=== PATIENT | male | born 2005 | race African-American/Black ===

== ENCOUNTER 2024-01-18 17:01 | Emergency (ER) | payer MEDICAID, SELFPAY ==
[2024-01-18 17:02] VITALS: BP 129/88; BP 151/76; PULSE 116; PULSE 91; RESP 16; RESP 20; TEMP 36.4; TEMP 36.5; O2SAT 100; O2SAT 98; BMI 42.0
--- NOTE | 2024-01-18 17:41 | EDS_ITS ---
HPI HPI - Fall History of Present Illness Chief Complaint: Trauma Informant: patient Occured/Mechanism Occurred: Today Mechanism/Context: Yes same level fall Usually ambulates: Without assistance Pain/Injury Pain Location: face and lower extremity Quality of Pain: Sharp Current Severity: Mild Maximum Severity: Mild Associated Symptoms Associated Symptoms: Negative for Parasthesias, Weakness, Loss of function, Inability to ambulate, Loss of consciousness or Amnesia Narrative Narrative: 18-year-old male history of asthma. [employer] student. Madi is skateboard. Fell forward striking both knees on the ground causing abrasions and chipped his left front incisor and fractured his left front upper tooth. No LOC. No neck pain. No other injuries. Prior similar symptoms: No Recent Illness/Hospitalization: No PFSH PFSH Home Medications NK 01/18/24 [History Last Taken Unknown] Allergy/AdvReac Type Severity Reaction Status Date / Time No Known Allergies Allergy Verified 01/18/24 17:03 ROS ROS ED ROS Narrative Denies recent illness. Review of Systems ROS Unobtainable: Denies due to encephalopathy Constitutional Constitutional ED: Denies chills or fever(s) Eyes Eyes: Denies blurry vision ENT ENT ED: Denies ear pain Cardiovascular Cardiovascular: Denies chest pain or palpitations Respiratory/Chest Respiratory/Chest: Denies cough or dyspnea Gastrointestinal Gastrointestinal: Denies abdominal pain Genitourinary Genitourinary ED: Denies dysuria or hematuria Musculoskeletal Musculoskeletal: Denies arthralgias or back pain Integumentary Denies abscess or Abrasions Neurologic Neurologic: Denies headache(s) Psychiatric Psychiatric: Denies anxiety or depression Endocrine Endocrinology: Denies polydipsia or polyphagia Hematologic/Lymphatic Hematologic/Lymphatic: Denies easy bleeding, easy bruising or lymphadenopathy Allergic/Immunologic Allergic/Immunologic ED: Denies mouth swelling, tongue swelling or urticaria EXAM Physical Exam Narrative Exam Narrative: 89-year-old male no acute distress vital signs stable afebrile. HEENT exam dry reactive to light. Extra motions are intact. His left upper front tooth has a diagonal crack through it. This will need dental repair by a dentist or injection molding supervisor. He also has a chipped left upper front incisor. Gums unremarkable jaw nontender he can open and close his mouth on any difficulty. Scalp nontender. Neck nontender. Back nontender. Lungs clear. Heart regular rhythm rate about 100 no murmur. Chest wall and ribs nontender. Abdomen soft nontender. Pelvic girdle intact. Moving all 4 extremities. Full range of motion. Minor abrasions both knees. Full flexion extension. No effusions. ACL and PCL intact. MCL and LCL intact. Full flexion extension of both hips, knees and ankles and feet. Normal strength and sensation. Upper extremities are nontender with 5 out of 5 family literacy coordinator strength. Normal range of motion. Neurologically is awake and alert with no focal motor deficits. Const Vital Signs: 01/18/24 17:02 Temperature 97.7 F L Temperature Source Temporal Pulse Rate 116 H Respiratory Rate 20 H Blood Pressure 129/88 H Blood Pressure Mean 101 Pulse Ox 100 Oxygen Delivery Method Room Air Positive well nourished and well developed; Negative for cachectic, contractures or unkempt General Appearance ED: well developed and NAD; Negative for unkempt, cachectic or contractures Nutritional Appearance: Negative for cachectic HEENT Reports normocephalic HEENT Narrative: Left upper front tooth fracture. Left upper incisor chipped. No malocclusion. Able to open close his jaw. No facial swelling. Neck nontender. Scalp nontender. trauma; Negative for atraumatic, contusion or hematoma Eyes PERRL and EOMs intact bilaterally General Eye ED: Negative for pale conjunctiva or scleral icterus Neck full ROM, no lymphadenopathy and supple Chest Wall inspection of chest normal and palpation of chest normal Chest: Negative for other Resp normal respiratory effort, no retractions and clear to auscultation bilaterally Effort and Inspection: Negative for pain with movement Auscultation: Negative for rales, rhonchi, wheezes or diminished lung sounds Cardio regular rate, regular rhythm, S1 normal heart sound, S2 normal heart sound and no murmurs Rate: Negative for bradycardia or tachycardic Rhythm: Negative for abnormal rhythm Bruits: Negative for other GI non-tender, non-distended and no masses Inspection: Negative for abdominal distention Auscultation: normoactive bowel sounds Palpation: soft; Negative for guarding or rebound tenderness present Back/Spine no CVA tenderness General Back: Negative for CVA tenderness Cervical Spine: Negative for cervical spine tenderness Thoracic Spine / Upper Back: Negative for ROM limited or pain with ROM Lumbar Spine / Lower Back: Negative for lumbar spinal tenderness Extremity Extremity Narrative: Bilateral knee abrasions. No effusions. Full range of motion. No bony deformity. Ligaments intact. Neuro oriented x3, CN's II-XII intact bilaterally, moves all extremities, no focal motor deficits and no sensory deficits noted [place] Coma Scale: document GCS findings Spontaneous Obeys Commands Oriented 15 Sensorium / Orientation: alert, oriented to person, oriented to place and oriented to time; Negative for orientation impaired, confused, lethargic or stuporous Motor Exam: strength 5/5 throughout Psych mental status grossly normal and thought process normal Appearance: Negative for unkempt Attitude: No agitated Mood & Affect: Negative for depressed, anxious or tearful Skin General Skin Exam: Negative for other Lesions: no lesions Rashes: no rashes Trauma: abrasion MDM MDM MDM Narrative Medical decision making narrative: 18-year-old [employer] student fell from his skateboard. Has bilateral knee abrasions. Is a fracture left upper front tooth. Chipped left upper incisor. Follow-up with a dentist. Tylenol Motrin for pain. Ice to his knees. History & Record Review Discussion w/independent historian: Patient Discharge Plan Triage Chief Complaint: Trauma ED Provider: Jason Cox Dx/Rx/DC Orders Clinical Impression: Accidental fall from skateboard, Fracture of tooth, Abrasion of knee Instructions: Dental Trauma, ED Abrasion Prescriptions: No Action NK Primary Care Provider: NOT,DEFINED Referrals: NOT,DEFINED [Primary Care Provider] - Activity Restrictions/Additional Instructions: Keep urine knees clean. Apply antibiotic ointment. Ice. Motrin for pain and swelling of the knees and teeth. Tylenol for pain. Call your insurance company [employer] see if they have local dentist you can follow-up. You can try Dr. Ghassan Zacarias or Dr. Barron Wade their office is [place]. You can try [facility]. Or just look in the phone book for any dentist office locally. You will need that left upper front tooth repaired. Disposition Disposition: Home, Self Care
[2024-01-18 17:50] VITALS: BP 148/67; PULSE 84; RESP 16; TEMP 36.4; O2SAT 99
== END 2024-01-18 17:52 | disposition home or self-care (01) ==
LOC: ED 17:47
PROVIDERS: Emergency Provider Emergency Medicine; Visit Provider Emergency Medicine
DX: S02.5XXA Fracture of tooth (traumatic), initial encounter for closed fracture (principal); V00.131A Fall from skateboard, initial encounter; Y93.51 Activity, roller skating (inline) and skateboarding; S80.211A Abrasion, right knee, initial encounter; S80.212A Abrasion, left knee, initial encounter
CPT/HCPCS: 99282

== ENCOUNTER 2025-01-23 18:02 | Emergency (ER) | payer MEDICAID, SELFPAY ==
[2025-01-23 18:03] VITALS: BP 140/102; PULSE 83; RESP 15; TEMP 36.6; O2SAT 99; BMI 45.0
--- NOTE | 2025-01-23 20:40 | RAD_ITS ---
PROCEDURE: ABDOMEN SINGLE VIEW 01/23/2025 REASON FOR EXAM: CONSTIPATION TECHNIQUE: Single view abdomen. COMPARISON: None FINDINGS: Bowel gas: Bowel gas pattern is remarkable for mild constipation. No evidence of bowel obstruction. Calcifications: No suspicious calcifications. Bones: The bones are unremarkable. Other: RAD/Abdomen Single View IMPRESSION: Mild constipation within the left colon. Reading Location: [facility]
[2025-01-23 22:54] VITALS: BP 119/73; PULSE 89; RESP 19; O2SAT 100
--- NOTE | 2025-01-23 23:51 | ED.VIS.GI ---
HPI HPI - GI History of Present Illness Chief Complaint: Constipation Informant: patient Abdominal Pain/Flank Pain Onset: Days Context: Gradual Onset Timing: Continuous Current Severity: Mild Maximum Severity: Mild Nausea/Vomiting/Emesis GI Symptom: Negative for Nausea or Vomiting Diarrhea/Melena/Hematochezia GI Symptom: Negative for Diarrhea, Melena or Hematochezia Associated Symptoms Associated Symptoms: Negative for Dysuria, Frequency or Hematuria Narrative Narrative: 19-year-old male no seen past medical history. No prior abdominal surgeries. Says last bowel movement was last Thursday. Spent about 5 days. Denies vomiting, diarrhea or fever. No dysuria. No significant abdominal pain. Denies any recent change in his diet. He is on no pain medication. Prior similar symptoms: No Recent Illness/Hospitalization: No PFSH PFSH Medical History Asthma Anxiety Home Medications ?Medication ?Instructions ?Recorded ?Last Taken ?Type hydroxyzine HCl 25 mg tablet 25 mg PO DAILY PRN anxiety 01/23/25 Unknown History sennosides 8.6 mg-docusate sodium 2 tab PO BID 01/23/25 Unknown History 50 mg tablet (Stimulant Laxative Plus) Allergy/AdvReac Type Severity Reaction Status Date / Time No Known Allergies Allergy Verified 01/23/25 18:06 Social History Smoking Status: Never smoker ROS ROS ED ROS Narrative Constipation otherwise negative. Constitutional Constitutional ED: Denies chills or fever(s) ENT ENT ED: Denies ear pain Cardiovascular Cardiovascular: Denies chest pain Respiratory/Chest Respiratory/Chest: Denies cough or dyspnea Gastrointestinal Gastrointestinal: Reports constipation; Denies abdominal pain, diarrhea, melena, nausea or vomiting Genitourinary Genitourinary ED: Denies dysuria or hematuria Musculoskeletal Musculoskeletal: Denies arthralgias, back pain or myalgias Integumentary Denies abscess or Abrasions Neurologic Neurologic: Denies headache(s) Psychiatric Psychiatric: Denies anxiety or depression Endocrine Endocrinology: Denies polydipsia or polyphagia Hematologic/Lymphatic Hematologic/Lymphatic: Denies easy bleeding or easy bruising Allergic/Immunologic Allergic/Immunologic ED: Denies mouth swelling, tongue swelling or urticaria EXAM Physical Exam Narrative Exam Narrative: 19-year-old male sitting upright in bed. Vital signs are stable afebrile. No acute distress. H EENT exam pupils round react to light. Mytrex membranes. Neck nontender. Lungs clear to auscultation. Heart regular rhythm no murmur. Abdomen soft, nontender, nondistended normal bowel sounds without peritoneal signs. No tenderness. No hernia or mass. No obstruction. Moving all 4 extremities. Nontender no edema. He is awake and alert. No focal motor deficits. Very benign exam. Back nontender. Const Vital Signs: 01/23/25 18:03 01/23/25 22:54 Temperature 97.8 F Temperature Source Temporal Pulse Rate 83 89 Respiratory Rate 15 19 H Blood Pressure 140/102 H 119/73 Blood Pressure Mean 114 88 Pulse Ox 99 100 Oxygen Delivery Method Room Air Positive well nourished and well developed; Negative for cachectic, contractures or unkempt General Appearance ED: well developed and NAD; Negative for unkempt, cachectic, contractures or pallor Nutritional Appearance: Negative for cachectic HEENT Reports moist mucous membranes normocephalic and atraumatic Eyes PERRL and EOMs intact bilaterally General Eye ED: Negative for pale conjunctiva or scleral icterus Neck no lymphadenopathy, supple and no JVD Resp normal respiratory effort and clear to auscultation bilaterally Effort and Inspection: Negative for respiratory distress Auscultation: Negative for rales, rhonchi or wheezes Cardio regular rate, regular rhythm, S1 normal heart sound, S2 normal heart sound and no murmurs GI non-tender, non-distended and no masses Inspection: Negative for abdominal distention Auscultation: normoactive bowel sounds Palpation: soft; Negative for tender, guarding, hernia, mass, pulsatile mass or rebound tenderness present Back/Spine no CVA tenderness Extremity full ROM General Extremety ED: Negative for edema or tenderness General Extremity: Negative for edema Neuro CN's II-XII intact bilaterally and moves all extremities Sensorium / Orientation: alert, oriented to person, oriented to place and oriented to time; Negative for orientation impaired or confused Psych mental status grossly normal Appearance: Negative for unkempt Attitude: No agitated Mood & Affect: Negative for depressed, anxious or tearful Skin no wounds General Skin Exam: Negative for pallor Lesions: no lesions Rashes: no rashes MDM MDM MDM Narrative Medical decision making narrative: 19-year-old male with constipation for 5 days. Abdominal exam benign exam otherwise benign. X-ray consistent with left colon constipation. No obstruction. Treated with GoLytely discharged to home. Outpatient follow-up as needed. Radiography Diagnostic Testing: Clinical Impression(s) from Imaging Studies KUB X-Ray 01/23/25 20:40 IMPRESSION: Mild constipation within the left colon. [facility], 2 films. 1 view. Interpreted by myself and radiologist shows mild constipation left colon. No bowel obstruction. No other acute abnormalities. Discussed the x-ray results with patient. Discharge Plan Triage Chief Complaint: Constipation ED Provider: Jason Cox Dx/Rx/DC Orders Clinical Impression: Acute constipation Instructions: ED Constipation (Adult) Prescriptions: No Action sennosides-docusate sodium [Stimulant Laxative Plus] 8.6-50 mg tablet 2 tab PO BID hydroxyzine HCl 25 mg tablet 25 mg PO DAILY PRN (Reason: anxiety) Primary Care Provider: Care Physician,No Primary Referrals: Parker Corral MD [Med Staff - Math Instructor] - 1 Week if not improving Care Physician,No Primary [Primary Care Provider] - Activity Restrictions/Additional Instructions: Drink the entire bottle of GoLytely tomorrow morning. Usually kicks in in 1 to 4 hours. You should have multiple large bowel movements. Plenty of fluids, fruits, vegetables fiber and beets to help keep you regular. Follow-up if not improving. Return if worse. Print Language: Ivorian Disposition Disposition: Home, Self Care
[2025-01-23 23:53] VITALS: BP 118/74; PULSE 65; RESP 16; TEMP 36.6; O2SAT 100
[2025-01-24] MEDS: Electrolyte Solution/Peg's 4000 ML 2000 ML PO (00:18)
== END 2025-01-24 00:18 | disposition home or self-care (01) ==
PROVIDERS: Emergency Provider Emergency Medicine; Visit Provider Emergency Medicine
DX: K59.00 Constipation, unspecified (principal); R10.9 Unspecified abdominal pain; F41.9 Anxiety disorder, unspecified; Z79.899 Other long term (current) drug therapy
CPT/HCPCS: 74018; 99282

== ENCOUNTER 2025-03-23 09:52 | Emergency (ER) | payer MEDICAID, SELFPAY ==
[2025-03-23 09:53] VITALS: BP 119/73; PULSE 71; RESP 16; TEMP 36.8; O2SAT 98; BMI 45.1
--- NOTE | 2025-03-23 10:17 | ED.VIS.GI ---
HPI HPI - GI History of Present Illness Chief Complaint: Abd Pain Informant: patient Abdominal Pain/Flank Pain Onset: Days (1 week.) Context: Gradual Onset Timing: Continuous Quality: Burning (Upper abdominal burning.) and - Location: Epigastric, RUQ and LUQ Current Severity: Mild Maximum Severity: Mild Nausea/Vomiting/Emesis GI Symptom: Negative for Nausea or Vomiting Diarrhea/Melena/Hematochezia GI Symptom: Negative for Diarrhea, Melena or Hematochezia Associated Symptoms Associated Symptoms: Negative for Dysuria, Frequency, Hematuria or Urgency Narrative Narrative: 19-year-old biological male transitioning to female. Past medical history of asthma and anxiety. Presents complaining of a week long history of burning upper abdominal chest pain. Was seen in urgent care a week or so ago was told to take Pepcid which only gave the patient some relief. But they are still having discomfort. Denies any dysuria. Having bowel movements. No melena. No fever. No weight change. No prior abdominal surgeries. No history of abdominal trauma. Prior similar symptoms: Yes Recent Illness/Hospitalization: No PFSH PFS Medical History Asthma Anxiety Home Medications ?Medication ?Instructions ?Recorded ?Last Taken ?Type hydroxyzine HCl 25 mg tablet 25 mg PO DAILY PRN anxiety 01/23/25 Unknown History sennosides 8.6 mg-docusate sodium 2 tab PO BID 01/23/25 Unknown History 50 mg tablet (Stimulant Laxative Plus) pantoprazole 40 mg tablet,delayed 40 mg PO DAILY #14 tabs 03/23/25 Unknown Rx release (Protonix) Allergy/AdvReac Type Severity Reaction Status Date / Time No Known Allergies Allergy Verified 03/23/25 10:33 Surgical History no surgical history no surgical history Social History Smoking Status: Never smoker ROS ROS ED ROS Narrative Abdominal pain. Denies nausea, vomiting, diarrhea. Denies fever or chills. Denies dysuria. No melena. No weight change. Constitutional Constitutional ED: Denies chills or fever(s) ENT ENT ED: Denies ear pain Cardiovascular Cardiovascular: Denies chest pain Respiratory/Chest Respiratory/Chest: Denies cough Gastrointestinal Gastrointestinal: Reports abdominal pain; Denies constipation, diarrhea, melena, nausea or vomiting Genitourinary Genitourinary ED: Denies dysuria or hematuria Musculoskeletal Musculoskeletal: Denies arthralgias Integumentary Denies abscess Neurologic Neurologic: Denies headache(s) Psychiatric Psychiatric: Denies anxiety Endocrine Endocrinology: Denies polydipsia Hematologic/Lymphatic Hematologic/Lymphatic: Denies easy bleeding, easy bruising or lymphadenopathy Allergic/Immunologic Allergic/Immunologic ED: Denies mouth swelling, tongue swelling or urticaria EXAM Physical Exam Narrative Exam Narrative: 19-year-old biological male [id number] female. Vital signs are stable afebrile. Pulse ox 90% on room air no hypoxia. H EENT exam pupils round react to light. Moist mucous membranes. Patient has a full lui. Neck nontender no lymphadenopathy. Lungs clear to auscultation bilaterally. Heart regular rhythm rate about 70 no murmur. Chest wall and ribs nontender. Back nontender. Abdomen is soft, nontender, nondistended normal bowel sounds without peritoneal signs. Patient is having upper abdominal discomfort there is absolutely no reproducible pain or tenderness. No hernia or mass. No obstruction. Moving all 4 extremities. Nontender no edema. Normal strength. Neurologically patient is awake and alert. No focal motor deficits. Answering questions following commands. Const Vital Signs: 03/23/25 09:53 Temperature 98.3 F Temperature Source Oral Pulse Rate 71 Respiratory Rate 16 Blood Pressure 119/73 Blood Pressure Mean 88 Pulse Ox 98 Oxygen Delivery Method Room Air Positive well nourished and well developed; Negative for cachectic, contractures or unkempt General Appearance ED: well developed and NAD; Negative for unkempt, cachectic, contractures or pallor Nutritional Appearance: Negative for cachectic HEENT Reports moist mucous membranes normocephalic and atraumatic Eyes PERRL and EOMs intact bilaterally Neck no lymphadenopathy, supple and no JVD Resp normal respiratory effort and clear to auscultation bilaterally Cardio regular rate, regular rhythm, S1 normal heart sound, S2 normal heart sound and no murmurs GI non-tender, non-distended and no masses Inspection: Negative for abdominal distention Auscultation: normoactive bowel sounds Palpation: soft; Negative for tender, guarding, rigid, hernia, mass, pulsatile mass or rebound tenderness present Back/Spine no CVA tenderness General Back: Negative for CVA tenderness Cervical Spine: Negative for cervical spine tenderness Thoracic Spine / Upper Back: Negative for thoracic spinal tenderness Lumbar Spine / Lower Back: Negative for lumbar spinal tenderness Extremity full ROM General Extremety ED: Negative for edema or tenderness General Extremity: Negative for edema Neuro CN's II-XII intact bilaterally and moves all extremities Sensorium / Orientation: alert, oriented to person, oriented to place and oriented to time; Negative for orientation impaired, confused or lethargic Motor Exam: strength 5/5 throughout; Negative for general weakness or strength abnormal Psych mental status grossly normal and thought process normal Appearance: Negative for unkempt Attitude: No agitated Mood & Affect: Negative for depressed, anxious or tearful Skin no wounds General Skin Exam: Negative for jaundice or pallor Lesions: no lesions Rashes: no rashes Trauma: Negative for abrasion Nails: Negative for discolored MDM MDM MDM Narrative Medical decision making narrative: 19-year-old patient with abdominal discomfort could be gastritis. No prior abdominal surgeries. Very benign nontender exam. I do not think this patient needs imaging. Labs will be obtained. Clinically I do not think this is gallbladder disease or an appendicitis. There is no hernia there is no signs of obstruction. Patient is having no urinary symptoms. Repeat exam patient doing well and 11:55 AM. Abdomen is benign. Completely nontender. We went over test results. Is a nontender abdomen normal labs I do not think he needs a CAT scan or other imaging. Clinically this sounds like a gastritis or reflux. Patient will be placed on Protonix and outpatient follow-up. Patient has a primary care physician in [place] that pt has appointment with next month. History & Record Review Discussion w/independent historian: Patient Additional record(s) reviewed:: No prior records Lab Data Attestation: I reviewed the patient's lab results. Lab results narrative: CBC normal. White count 7. H&H 1441. Platelets 320. Electrolytes show sodium 137. Gap 12. Normal BUN and creatinine. Glucose 103. Liver enzymes normal. Lipase normal at 28. Urinalysis is negative. No white or red cells. No nitrites. Labs: Laboratory Results - last 24 hr 03/23/25 10:35 WBC 7.5 RBC 4.55 Hgb 14.2 Hct 41.6 MCV 91.4 MCH 31.2 MCHC 34.1 RDW Std Deviation 40.2 RDW Coeff of [place] 12.1 Plt Count 320 MPV 10.4 Immature Gran % (Auto) 0.300 Neut % (Auto) 44.6 L Lymph % (Auto) 37.5 [place] % (Auto) 12.1 H Eos % (Auto) 4.8 Baso % (Auto) 0.7 Absolute Neuts (auto) 3.4 Absolute Lymphs (auto) 2.83 Nucleated RBC % 0 Sodium 137 Potassium 3.8 Chloride 104 Carbon Dioxide 21.7 Anion Gap 12 BUN 11 Creatinine 0.79 Estim Creat Clear Calc 124.11 Est GFR (MDRD) Non-Af 110 BUN/Creatinine Ratio 14.4 Glucose 103 H Calcium 9.1 Total Bilirubin 0.48 AST 23 ALT 20 Alkaline Phosphatase 92 Total Protein 7.7 Albumin 4.4 Globulin 3.3 Albumin/Globulin Ratio 1.3 Lipase 28 Urine Color Yellow Urine Clarity Clear Urine pH 6.0 Ur Specific [place] 1.020 Urine Protein 15 H Urine Glucose (UA) Normal Urine Ketones Negative Urine Occult Blood Negative Urine Nitrite Negative Urine Bilirubin Negative Urine Urobilinogen Normal Ur Leukocyte Esterase 25 H Urine RBC 0 SEEN Urine WBC 0-5 SEEN Ur Squamous Epith Cells 0-5 SEEN Urine Bacteria 0 SEEN Urine Mucus 0 SEEN Discharge Plan Triage Chief Complaint: Abd Pain ED Provider: Jason Cox Dx/Rx/DC Orders Clinical Impression: Abdominal pain, Gastritis Instructions: ED Abdominal Pain Unkn Cause Fem Prescriptions: New pantoprazole [Protonix] 40 mg tablet,delayed release (DR/EC) 40 mg PO DAILY Qty: 14 0RF No Action sennosides-docusate sodium [Stimulant Laxative Plus] 8.6-50 mg tablet 2 tab PO BID hydroxyzine HCl 25 mg tablet 25 mg PO DAILY PRN (Reason: anxiety) Primary Care Provider: Care PhysicianConstance Primary Referrals: [facility] Doctor,Out of [Non-Staff] - Activity Restrictions/Additional Instructions: Follow-up with your doctor next month to ensure you are improving. We will try the medication Protonix if this is gastritis or reflux that should help. You can either take it in the morning or the evening. Return if you are having increasing pain, fever, vomiting, black or bloody stools or weight loss. Print Language: Danish Disposition Disposition: Home, Self Care
[2025-03-23 10:44] LABS: Bacteria 0 SEEN /hpf (None Seen); Mucous, Urine 0 SEEN /hpf (<or=2+); Red Blood Cells-Urine 0 SEEN /hpf (0-5)
[2025-03-23 10:46] LABS: Color, Urine Yellow (Yellow); Glucose, Dipstick Normal (Normal); Ketone-Dipstick Negative (Negative); Leukocyte Esterase-Dipstick 25 /ul (Negative); Nitrite-Dipstick Negative (Negative); Occult Blood-Urine Negative /ul (Negative); Protein-Dipstick 15 mg/dl (Negative); Urine Bilirubin Dipstick Negative (Negative); Urine Clarity Clear (Clear); Urine Urobilinogen Normal (Normal)
[2025-03-23 10:49] LABS: Absolute Lymphocyte Count 2.83 X10^3/uL (0.83-4.51); Absolute Neutrophil Count 3.4 X10^3/uL (2.0-7.7); Basophil# 0.05 X10^3/uL; Basophil% 0.7 % (0-1); Eosinophil# 0.36 X10^3/uL; Eosinophils% 4.8 % (0-5); Hematocrit 41.6 % (37-47); Hemoglobin 14.2 g/dL (12.0-15.0); Lymphocyte # 2.83 X10^3/ul (0.83-4.51); Lymphocyte % 37.5 % (19-41); Mean Corp Hgb Conc 34.1 g/dL (32-36); Mean Corpuscular Hgb 31.2 pg (27.0-32.0); Mean Corpuscular Volume 91.4 fL (81-99); Mean Platelet Vol. 10.4 fl (6.2-12.0); Monocyte# 0.91 X10^3/uL; Monocyte% 12.1 % (0-10); NRBC Flagged by Analyzer 0 % (0-5); Neutrophil # 3.37 X10^3/uL (2.7-7.7); Neutrophil % 44.6 % (47-70); Platelet Count 320 K/mm3 (150-450); RBC Distribution Width CV 12.1 % (11.6-14.6); RBC Distribution Width SD 40.2 fl (35.1-43.9); Red Blood Count 4.55 M/mm3 (4.2-5.4); White Blood Count 7.5 K/mm3 (4.4-11.0)
[2025-03-23 10:52] LABS: Squamous Epithelial Cells - UA 0-5 SEEN /hpf (5-10); White Blood Cells 0-5 SEEN /hpf (0-5)
[2025-03-23 11:08] LABS: ALB/GLOB Ratio 1.3 RATIO (0.9-2.4); AST(SGOT) 23 U/L (<=31); Alanine Aminotransfer ALT/SGPT 20 U/L (<=34); Albumin, Serum 4.4 g/dL (3.5-5.0); Alkaline Phosphatase 92 U/L (35-104); Anion Gap 12 (5-15); BUN 11 mg/dL (4-19); BUN/Creat Ratio 14.4 RATIO (10-20); Calcium,Total 9.1 mg/dL (7.6-11.0); Carbon Dioxide 21.7 mmol/L (21.0-32.0); Chloride 104 mmol/L (98-108); Creatinine, Serum 0.79 mg/dL (0.70-1.20); EST Glomerular Filtration Rate 110 (>60); Estimated Creatinine Clearance 124.11 ml/min (50-250); Globulin 3.3 g/dL (2.2-4.2); Glucose 103 mg/dL (70-99); Lipase 28 U/L (13-75); Potassium 3.8 mmol/L (3.3-5.1); Protein, Total 7.7 g/dL (5.9-8.4); Sodium Level 137 mmol/L (133-145); Total Bilirubin 0.48 mg/dL (0.00-1.30)
[2025-03-23 13:22] VITALS: BP 122/74; PULSE 59; RESP 16; TEMP 36.3; O2SAT 98
[2025-03-23 13:24] VITALS: BP 122/74; PULSE 59; RESP 16; O2SAT 98
== END 2025-03-23 13:55 | disposition home or self-care (01) ==
PROVIDERS: Emergency Provider Emergency Medicine; Visit Provider Emergency Medicine
DX: R10.13 Epigastric pain (principal); F41.9 Anxiety disorder, unspecified; Z79.899 Other long term (current) drug therapy; R10.11 Right upper quadrant pain; R10.12 Left upper quadrant pain; K29.70 Gastritis, unspecified, without bleeding
CPT/HCPCS: 80053; 81001; 83690; 85025; 99283; A4216